=== PATIENT | female | born 1945 | race Caucasian/White ===

== ENCOUNTER 2018-05-27 16:15 | Emergency (ER) | payer OTHER ==
[~2018-05-27 16:15] MED LIST: ALBUTEROL0.09 MG/A1 INH; AZITHROMYCIN500 MG PO; PREDNISONE10 MG PO; Robitussin PO; SYMBICORT 160/41 PUF INH
[2018-05-27 17:05] LABS: HEMATOCRIT 31.8 % (37-47); MEAN CORPUSCULAR HGB 17.1 PG (27.0-31.0); MEAN CORPUSCULAR HGB CONC 30.9 G/DL (33.0-37.0); MEAN CORPUSCULAR VOLUME 55.5 FL (81.0-99.0); MEAN PLATELET VOLUME 8.3 FL (7.4-10.4); PLATELET COUNT 410 /CUMM (130-400); RBC DISTRIBUTION WIDTH 18.2 % (11.5-14.5); RED BLOOD CELL CT 5.73 /CUMM (4.20-5.40); WHITE BLOOD CELL COUNT 9.2 /CUMM (4.8-10.8)
[2018-05-27 20:50] VITALS: BP 169/82
--- NOTE | 2018-06-05 11:04 | ED UPPER/LOWER EXTREMITY COMPL ---
History of Present Illness General Chief Complaint: Lower Extremity Injury Stated Complaint: PT SIB DR FOR FRACTURE HIP Source: patient, family, old records Exam Limitations: no limitations Vital Signs & Intake/Output Vital Signs & Intake/Output . Allergies Coded Allergies: NO KNOWN ALLERGIES (10/13/15) Reconcile Medications Albuterol Sulfate (Albuterol Sulfate Hfa) 0.09 MG/Actuation SILVER 2 PUFF INH Q4- 6 PRN PRN SHORTNESS OF BREATH 90 MCG PER PUFF Budesonide/Formoterol Fumara (Symbicort 160-4.5 Mcg Inhaler) 160 MCG/4.5 MCG PUF 2 PUF INH BID sob [Robitussin] 10 ML PO Q4P PRN COUGH Triage Note: PT SENT TO ED BY DR GUZMAN FOR EVAL OF LEFT HIP LESION/FRACTURE? HAD MRI ON THURSDAY THROUGH [facility]. ABLE TO AMBULATE/BEAR WEIGHT. TAKING MOTRIN 800 MG WITH SOME EFFECT. PAIN IN LET HIP X 3 WEEKS. DENIES INJURY OR FALL Triage Nurses Notes Reviewed? yes Onset: 3 weeks Duration: week(s):, constant, continues in ED, getting worse Timing: recent history Severity: moderate, severe Pain/Injury Location: Left: Hip. Method of Injury: unknown Modifying Factors: Worsens With: movement. Associated Symptoms: stiffness LMP (ages 10-50): post menopausal : No Patient currently breastfeeds: No HPI: 3 weeks [employer] patient complains of increasing atraumatic left hip pain. Outpatient MRI suggestive of pathologic fracture with abnormal chest CT. No fever chills nausea vomiting diarrhea abdominal pain chest pain shortness of breath headache dysuria rash bleeding. Past History Travel History Traveled to [place] past 21 day No Medical History Any Pertinent Medical History? see below for history Cardiovascular: FLUID AROUND HEART Respiratory: COPD, pneumonia in past History of MRSA: No History of VRE: No History of CDIFF: No Surgical History Surgical History: unobtainable Psychosocial History Who do you live with Son Services at Home None What is your primary language Georgian Tobacco Use: Quit >30 days ago Family History Family History, If Any: FATHER Relation not specified for: FH: COPD (chronic obstructive pulmonary disease) Hx Contributory? No Review of Systems Review of Systems Constitutional: Reports: no symptoms. EENTM: Reports: no symptoms. Respiratory: Reports: no symptoms. Cardiovascular: Reports: no symptoms. Gastrointestinal/Abdominal: Reports: no symptoms. Genitourinary: Reports: no symptoms. Musculoskeletal: Reports: see HPI, joint pain. Skin: Reports: no symptoms. Neurological/Psychological: Reports: no symptoms. Hematologic/Endocrine: Reports: no symptoms. Immunological: Reports: no symptoms. All Other Systems: Reviewed and Negative Physical Exam Physical Exam General Appearance: well developed/nourished, alert, awake, comfortable, mild distress Head: atraumatic, normal appearance Eyes: Bilateral: normal appearance, PERRL, EOMI. Ears, Nose, Throat: normal pharynx, normal ENT inspection, hearing grossly normal Neck: normal inspection, supple, full range of motion, no midline tenderness Cardiovascular/Respiratory: regular rate/rhythm Peripheral Pulses: 2+ carotid (R), 2+ carotid (L) Back: normal inspection, normal range of motion Shoulder Left: normal range of motion, normal inspection Shoulder Right: normal range of motion, normal inspection Elbow Left: normal range of motion, normal inspection Elbow Right: normal range of motion, normal inspection Hand Left: normal inspection, normal range of motion Hand Right: normal inspection, normal range of motion Upper Extremity Reflexes: 2+: bicep (R), bicep (L). Leg Left: normal inspection, tenderness Leg Right: normal range of motion, normal inspection Hip Left: normal inspection, bone tenderness, limited range of motion Hip Right: normal range of motion, normal inspection Knee Left: normal range of motion, normal inspection Knee Right: normal range of motion, normal inspection Foot Left: normal inspection, normal range of motion Foot Right: normal inspection, normal range of motion Lower Extremity Reflexes: 2+: knee (R), knee (L). Neurologic/Tendon: normal sensation, normal motor functions, normal tendon functions Skin: intact, normal color, warm/dry Lymphatic: no anterior cervical kalen Progress Differential Diagnosis: contusion, fracture, sprain Plan of Care: D/W Dr. Cruz, to [facility] for pathologic fx. Comments: D/W [facility] orthopedics, hospitalist staff accepted in transfer. Departure Departure Disposition: [facility] (ACUTE) Condition: Stable Clinical Impression Primary Impression: Pathological fracture of left hip Referrals: Camilla THOMASON,Addie Vaca (PCP/Family) Departure Forms: Customer Survey General Discharge Information
== END 2018-05-27 22:09 | disposition short-term general hospital (02) ==
LOC: ERH 16:15
PROVIDERS: Emergency Medicine
DX: M84.459A Pathological fracture, hip, unspecified, initial encounter for fracture (principal); J44.9 Chronic obstructive pulmonary disease, unspecified; Z87.891 Personal history of nicotine dependence
CPT/HCPCS: 1263